=== PATIENT | female | born 1985 | race African-American/Black ===

== ENCOUNTER 2017-07-03 09:31 | Emergency (ER) | payer BC ==
[~2017-07-03] VITALS: Ht 160 cm; Wt 84.0 kg
[~2017-07-03 09:31] MED LIST: AMOXICILLIN500 MG PO; CIPROFLOXACN500 MG PO; LORTAB5 PO; NAPROSYN500 MG PO; [UNRECOGNIZED DRUG - CODE] OR
[2017-07-03 10:11] LABS: HEMATOCRIT 41.3 % (37.0-47.0); HEMOGLOBIN 13.4 g/dl (12.0-16.0); IMMATURE GRANULOCYTES 0.1 % (0.0-1.0); MEAN CELL VOLUME 88.4 fL CALC (80.0-100.0); MEAN CORPUSCULAR HGB 28.7 pG CALC (26.0-32.0); MEAN CORPUSCULAR HGB CONC 32.4 g/L CALC (32.0-36.0); NEUT# 3.27 thou/uL (2.00-7.15); RED BLOOD COUNT 4.67 mill/uL (4.20-5.60); RED CELL DISTRI WIDTH 13.2 % (11.5-15.5)
[2017-07-03 10:36] LABS: ANION GAP 20 (6-22 (CALC)); BUN 9 mg/dL (7-17); BUN/CREATININE RATIO 12 (12-20 (CALC)); CARBON DIOXIDE 22 mmol/l (22-30); CHLORIDE 106 mmol/l (95-108); CREATININE 0.8 mg/dL (0.5-1.0); GFR > 60 ML/MIN (>=60 (CALC)); GFR FOR AFR.AMER. > 60 ML/MIN (>=60 (CALC)); POTASSIUM 4.3 mmol/l (3.5-5.1); SODIUM 144 mmol/l (137-146)
[2017-07-03 11:28] LABS: URINE BILIRUBIN - DIPSTICK NEGATIVE (NEGATIVE); URINE BLOOD DIPSTICK NEGATIVE (NEGATIVE); URINE COLOR YELLOW; URINE GLUCOSE - DIPSTICK NEGATIVE (NEGATIVE); URINE KETONE TRACE mg/dL (NEGATIVE); URINE LEUK ESTERASE NEGATIVE (NEGATIVE); URINE NITRITE - DIPSTICK NEGATIVE (Negative); URINE PH 5.5 (4.5-8.0); URINE PROTEIN - DIPSTICK NEGATIVE (NEG-TRACE); URINE UROBILINOGEN - DIPSTICK 0.2 E.U./dL (0.2)
[2017-07-03 11:30] LABS: URINE CLARITY CLEAR
[2017-07-03 12:18] VITALS: BP 121/72
== END 2017-07-03 12:24 | disposition home or self-care (01) | DRG 103 ==
LOC: ED 09:31
PROVIDERS: Family Medicine
DX: R51 Headache (principal)

== ENCOUNTER 2017-10-14 08:17 | Emergency (ER) | payer BC ==
[~2017-10-14] VITALS: Ht 160 cm; Wt 85.2 kg
[2017-10-14 09:03] LABS: HEMATOCRIT 39.4 % (37.0-47.0); HEMOGLOBIN 12.9 g/dl (12.0-16.0); MEAN CELL VOLUME 87.4 fL CALC (80.0-100.0); MEAN CORPUSCULAR HGB 28.6 pG CALC (26.0-32.0); MEAN CORPUSCULAR HGB CONC 32.7 g/L CALC (32.0-36.0); NEUT# 1.81 thou/uL (2.00-7.15); RED BLOOD COUNT 4.51 mill/uL (4.20-5.60); RED CELL DISTRI WIDTH 12.9 % (11.5-15.5)
[2017-10-14 09:21] LABS: ALBUMIN 4.3 g/dL (3.2-5.0); ALKALINE PHOSPHATASE 94 u/l (38-126); AMYLASE 93 u/l (30-110); ANION GAP 19 (6-22 (CALC)); BILIRUBIN, TOTAL 0.4 mg/dL (0.0-1.4); BUN 8 mg/dL (7-17); BUN/CREATININE RATIO 12 (12-20 (CALC)); CARBON DIOXIDE 22 mmol/l (22-30); CHLORIDE 106 mmol/l (95-108); CREATININE 0.7 mg/dL (0.5-1.0); GFR > 60 ML/MIN (>=60 (CALC)); GFR FOR AFR.AMER. > 60 ML/MIN (>=60 (CALC)); LIPASE 72 u/l (23-300); POTASSIUM 3.6 mmol/l (3.5-5.1); SGOT/AST 26 u/l (14-36); SGPT/ALT 29 u/l (9-52); SODIUM 144 mmol/l (137-146); TOTAL PROTEIN 8.1 g/dL (6.3-8.2)
[2017-10-14 09:31] LABS: MYOGLOBIN 23 ng/mL (0 - 62)
[2017-10-14 09:52] LABS: TSH, 3RD GENERATION 1.97 uIU/mL (0.47 - 4.68)
[2017-10-14 11:24] LABS: URINE BILIRUBIN - DIPSTICK NEGATIVE (NEGATIVE); URINE BLOOD DIPSTICK NEGATIVE (NEGATIVE); URINE COLOR YELLOW; URINE GLUCOSE - DIPSTICK NEGATIVE (NEGATIVE); URINE KETONE NEGATIVE (NEGATIVE); URINE LEUK ESTERASE NEGATIVE (NEGATIVE); URINE NITRITE - DIPSTICK NEGATIVE (Negative); URINE PROTEIN - DIPSTICK NEGATIVE (NEG-TRACE); URINE SPECIFIC GRAVITY >=1.030; URINE UROBILINOGEN - DIPSTICK 0.2 E.U./dL (0.2)
[2017-10-14 11:27] LABS: URINE CLARITY CLEAR
[2017-10-14 11:29] LABS: BARBITURATES NEGATIVE (NEGATIVE); COCAINE NEGATIVE (NEGATIVE); METHADONE NEGATIVE (NEGATIVE); OXCYCODONE NEGATIVE (NEGATIVE); TETRAHYDROCANNABIONOL NEGATIVE (NEGATIVE); TRICYLIC ANTIDEPRESSANTS POSITIVE (NEGATIVE)
[2017-10-14] MEDS ORDERED: TORADOL PO (11:56)
[2017-10-14 12:12] VITALS: BP 116/71
== END 2017-10-14 12:11 | disposition home or self-care (01) | DRG 313 ==
LOC: ED 08:17
PROVIDERS: Emergency Medicine
DX: R07.89 Other chest pain (principal); R51 Headache

== ENCOUNTER 2018-03-06 21:12 | Emergency (ER) | payer BC ==
[~2018-03-06] VITALS: Ht 160 cm; Wt 81.8 kg
[~2018-03-06 21:12] MED LIST changes: +TORADOL PO
[2018-03-06 22:26] LABS: URINE BILIRUBIN - DIPSTICK NEGATIVE (NEGATIVE); URINE BLOOD DIPSTICK NEGATIVE (NEGATIVE); URINE COLOR YELLOW; URINE GLUCOSE - DIPSTICK NEGATIVE (NEGATIVE); URINE KETONE NEGATIVE (NEGATIVE); URINE LEUK ESTERASE NEGATIVE (NEGATIVE); URINE NITRITE - DIPSTICK NEGATIVE (Negative); URINE PROTEIN - DIPSTICK NEGATIVE (NEG-TRACE); URINE SPECIFIC GRAVITY >=1.030; URINE UROBILINOGEN - DIPSTICK 0.2 E.U./dL (0.2)
[2018-03-06 22:28] LABS: URINE CLARITY CLEAR
[2018-03-06 23:25] LABS: HEMATOCRIT 36.4 % (37.0-47.0); HEMOGLOBIN 12.1 g/dl (12.0-16.0); IMMATURE GRANULOCYTES 0.1 % (0.0-5.0); MEAN CELL VOLUME 87.9 fL CALC (80.0-100.0); MEAN CORPUSCULAR HGB 29.2 pG CALC (26.0-32.0); MEAN CORPUSCULAR HGB CONC 33.2 g/L CALC (32.0-36.0); NEUT# 3.16 thou/uL (2.00-7.15); RED BLOOD COUNT 4.14 mill/uL (4.20-5.60); RED CELL DISTRI WIDTH 13.2 % (11.5-15.5)
[2018-03-07 00:20] LABS: ALKALINE PHOSPHATASE 73 u/l (38-126); ANION GAP 13 (6-22 (CALC)); BILIRUBIN, TOTAL 0.1 mg/dL (0.0-1.4); BUN 18 mg/dL (7-17); BUN/CREATININE RATIO 25 (12-20 (CALC)); CARBON DIOXIDE 27 mmol/l (22-30); CHLORIDE 105 mmol/l (95-108); CREATININE 0.7 mg/dL (0.5-1.0); GFR > 60 ML/MIN (>=60 (CALC)); GFR FOR AFR.AMER. > 60 ML/MIN (>=60 (CALC)); POTASSIUM 3.8 mmol/l (3.5-5.1); SGOT/AST 22 u/l (14-36); SODIUM 142 mmol/l (137-146); TOTAL PROTEIN 7.3 g/dL (6.3-8.2)
[2018-03-07 00:31] LABS: MYOGLOBIN 15 ng/mL (0 - 62)
[2018-03-07] MEDS ORDERED: FLEXERIL PO (00:50)
[2018-03-07] MEDS ORDERED: NAPROSYN500 MG PO (00:50)
[2018-03-07 01:11] VITALS: BP 116/64
== END 2018-03-07 01:24 | disposition home or self-care (01) | DRG 313 ==
LOC: ED 21:12
PROVIDERS: Emergency Medicine
DX: R07.89 Other chest pain (principal); M62.838 Other muscle spasm

== ENCOUNTER 2018-07-13 23:56 | Emergency (ER) | payer BC ==
[~2018-07-13] VITALS: Ht 160 cm; Wt 82.0 kg
[~2018-07-13 23:56] MED LIST changes: +FLEXERIL PO
[2018-07-14 00:39] LABS: HEMATOCRIT 36.2 % (37.0-47.0); HEMOGLOBIN 11.9 g/dl (12.0-16.0); IMMATURE GRANULOCYTES 0.2 % (0.0-5.0); MEAN CELL VOLUME 89.2 fL CALC (80.0-100.0); MEAN CORPUSCULAR HGB 29.3 pG CALC (26.0-32.0); MEAN CORPUSCULAR HGB CONC 32.9 g/L CALC (32.0-36.0); RED BLOOD COUNT 4.06 mill/uL (4.20-5.60); RED CELL DISTRI WIDTH 12.6 % (11.5-15.5)
[2018-07-14 00:44] LABS: URINE BILIRUBIN - DIPSTICK NEGATIVE (NEGATIVE); URINE BLOOD DIPSTICK SMALL (NEGATIVE); URINE COLOR YELLOW; URINE GLUCOSE - DIPSTICK NEGATIVE (NEGATIVE); URINE KETONE NEGATIVE (NEGATIVE); URINE LEUK ESTERASE TRACE (NEGATIVE); URINE NITRITE - DIPSTICK NEGATIVE (Negative); URINE PH 7.5 (4.5-8.0); URINE PROTEIN - DIPSTICK 30 mg/dL (NEG-TRACE); URINE SPECIFIC GRAVITY 1.025; URINE UROBILINOGEN - DIPSTICK 0.2 E.U./dL (0.2)
[2018-07-14 00:59] LABS: URINE BACTERIA FEW hpf; URINE SPERM MODERATE hpf; URINE SQUAMOUS EPITHELIAL CELL FEW EPI/hpf (0-FEW)
[2018-07-14 01:05] LABS: PLATELET COUNT 372 thou/uL (130-400)
[2018-07-14 01:06] LABS: MANUAL DIFFERENTIAL YES
[2018-07-14 01:07] LABS: BAND 3 % (0-8); PLATELET ESTIMATE NORMAL
[2018-07-14 01:24] LABS: ALBUMIN 4.2 g/dL (3.2-5.0); ALKALINE PHOSPHATASE 85 u/l (38-126); ANION GAP 11 (6-22 (CALC)); BILIRUBIN, TOTAL 0.2 mg/dL (0.0-1.4); BUN 11 mg/dL (7-17); BUN/CREATININE RATIO 14 (12-20 (CALC)); CARBON DIOXIDE 26 mmol/l (22-30); CHLORIDE 106 mmol/l (95-108); CREATININE 0.8 mg/dL (0.5-1.0); GFR > 60 ML/MIN (>=60 (CALC)); GFR FOR AFR.AMER. > 60 ML/MIN (>=60 (CALC)); POTASSIUM 3.7 mmol/l (3.5-5.1); SGOT/AST 25 u/l (14-36); SODIUM 140 mmol/l (137-146); TOTAL PROTEIN 7.8 g/dL (6.3-8.2)
[2018-07-14 01:50] LABS: AMYLASE 79 u/l (30-110); LIPASE 150 u/l (23-300)
[2018-07-14] MEDS ORDERED: PROTONIX40 MG PO (03:38)
[2018-07-14 03:45] VITALS: BP 125/68
== END 2018-07-14 03:45 | disposition home or self-care (01) | DRG 392 ==
LOC: ED 23:56
PROVIDERS: Emergency Medicine
DX: R10.12 Left upper quadrant pain (principal); R10.11 Right upper quadrant pain; R10.13 Epigastric pain
CPT/HCPCS: Q9967; S0164

== ENCOUNTER 2021-09-25 07:56 | Emergency (ER) | payer BC ==
[~2021-09-25] VITALS: Ht 160 cm; Wt 84.0 kg
[~2021-09-25 07:56] MED LIST changes: +PROTONIX40 MG PO
[2021-09-25 08:01] VITALS: BP 133/74
[2021-09-25 09:10] LABS: URINE BILIRUBIN - DIPSTICK NEGATIVE (NEGATIVE); URINE BLOOD DIPSTICK TRACE-INTACT (NEGATIVE); URINE COLOR YELLOW; URINE GLUCOSE - DIPSTICK NEGATIVE (NEGATIVE); URINE KETONE NEGATIVE (NEGATIVE); URINE LEUK ESTERASE NEGATIVE (NEGATIVE); URINE PROTEIN - DIPSTICK NEGATIVE (NEG-TRACE); URINE SPECIFIC GRAVITY 1.025; URINE UROBILINOGEN - DIPSTICK 0.2 E.U./dL (0.2)
[2021-09-25 09:10] LABS: ALBUMIN 4.1 g/dL (3.2-5.0); ALKALINE PHOSPHATASE 76 u/l (38-126); AMYLASE 77 u/l (30-110); ANION GAP 12 (6-22 (CALC)); BILIRUBIN, TOTAL 0.2 mg/dL (0.0-1.4); BUN 9 mg/dL (7-17); BUN/CREATININE RATIO 13 (12-20 (CALC)); CARBON DIOXIDE 25 mmol/l (22-30); CHLORIDE 107 mmol/l (95-108); CREATININE 0.7 mg/dL (0.5-1.0); GFR > 60 ML/MIN (>=60 (CALC)); GFR FOR AFR.AMER. > 60 ML/MIN (>=60 (CALC)); LIPASE 78 u/l (23-300); POTASSIUM 4.1 mmol/l (3.5-5.1); SGOT/AST 22 u/l (14-36); SODIUM 139 mmol/l (137-146); TOTAL PROTEIN 7.3 g/dL (6.3-8.2)
[2021-09-25 09:13] LABS: HEMATOCRIT 37.7 % (37.0-47.0); IMMATURE GRANULOCYTES 0.1 % (0.0-5.0); MEAN CELL VOLUME 90.4 fL CALC (80.0-100.0); MEAN CORPUSCULAR HGB 28.8 pG CALC (26.0-32.0); MEAN CORPUSCULAR HGB CONC 31.8 g/dL CAL (32.0-36.0); NEUT# 2.43 thou/uL (2.00-7.15); RED BLOOD COUNT 4.17 mill/uL (4.20-5.60); RED CELL DISTRI WIDTH 13.4 % (11.5-15.5)
[2021-09-25 09:18] LABS: URINE NITRITE - DIPSTICK NEGATIVE (Negative)
[2021-09-25] MEDS ORDERED: PROTONIX40 M2 PO (12:31)
[2021-09-25 12:44] VITALS: BP 133/74
== END 2021-09-25 13:35 | disposition home or self-care (01) | DRG 313 ==
LOC: ED 07:56
DX: R07.89 Other chest pain (principal); I10 Essential (primary) hypertension; E11.9 Type 2 diabetes mellitus without complications; E78.00 Pure hypercholesterolemia, unspecified; Z20.822 Contact with and (suspected) exposure to COVID-19

== ENCOUNTER 2021-10-12 13:35 | Emergency (ER) | payer BC ==
[~2021-10-12] VITALS: Ht 160 cm; Wt 86.4 kg
[2021-10-12] VITALS (8 sets, daily range): BP systolic 111–129; BP diastolic 59–76
[~2021-10-12 13:35] MED LIST changes: +PROTONIX40 M2 PO
[2021-10-12] MEDS ORDERED: PERCOCET 10/31 COMBO PO (16:50)
[2021-10-12] MEDS ORDERED: NAPROXEN500 MG PO (16:50)
== END 2021-10-12 17:52 | disposition home or self-care (01) | DRG 563 ==
LOC: ED 13:35
DX: S39.012A Strain of muscle, fascia and tendon of lower back, initial encounter (principal); X50.0XXA Overexertion from strenuous movement or load, initial encounter

== ENCOUNTER 2022-04-07 20:00 | Observation (INO) | payer OTHER ==
[~2022-04-07] VITALS: Ht 160 cm; Wt 85.5 kg
[2022-04-07] VITALS (7 sets, daily range): BP systolic 111–134; BP diastolic 64–82
[~2022-04-07 20:00] MED LIST changes: +NAPROXEN500 MG PO; +PERCOCET 10/31 COMBO PO
[2022-04-07 20:35] LABS: HEMOGLOBIN 11.9 g/dl (12.0-16.0); IMMATURE GRANULOCYTES 0.1 % (0.0-5.0); MEAN CELL VOLUME 88.5 fL CALC (80.0-100.0); MEAN CORPUSCULAR HGB 29.2 pG CALC (26.0-32.0); MEAN CORPUSCULAR HGB CONC 33.1 g/dL CAL (32.0-36.0); NEUT# 5.1 thou/uL (2.00-7.15); RED BLOOD COUNT 4.07 mill/uL (4.20-5.60); RED CELL DISTRI WIDTH 12.9 % (11.5-15.5)
[2022-04-07 20:49] LABS: ALBUMIN 4.1 g/dL (3.2-5.0); ALKALINE PHOSPHATASE 74 u/l (38-126); ANION GAP 11 (6-22 (CALC)); BILIRUBIN, TOTAL 0.4 mg/dL (0.0-1.4); BUN 10 mg/dL (7-17); BUN/CREATININE RATIO 12 (12-20 (CALC)); CARBON DIOXIDE 25 mmol/l (22-30); CHLORIDE 104 mmol/l (95-108); CREATININE 0.9 mg/dL (0.5-1.0); GFR FOR AFR.AMER. > 60 ML/MIN (>=60 (CALC)); GFR OTHER RACES > 60 ML/MIN (>=60 (CALC)); POTASSIUM 3.7 mmol/l (3.5-5.1); SGOT/AST 27 u/l (14-36); SODIUM 136 mmol/l (137-146); TOTAL PROTEIN 7.6 g/dL (6.3-8.2)
[2022-04-07 20:54] LABS: PROTHROMBIN TIME 10.4 SECONDS (9.0-12.5)
--- NOTE | 2022-04-07 20:59 | NUR ---
PT TO ED FOR LEFT ARM TINGLING/HEAVINESS AND LEFT FACIAL TINGLING SINCE 12PM. PT HAS HX OF MUSCLE SPASMS AND TINGLING, PT SELF MEDICATED HOWEVER WOKE UP TONIGHT AND SYMPTOMS PERSISTED. STROKE ALERT CALLED AT 2013, PT TAKEN TO CT. BG 91, LDA ESTABLISHED. PT ASSESSED BY TELE NUEUROLOGIST, NIH=1. PT IN NAD, A&OX4, VSS.
--- NOTE | 2022-04-07 21:23 | NUR ---
Reassessment of patient completed. No distress noted. NO CHANGES NOTED IN NIH SCORE
[2022-04-07] MEDS ORDERED: TRI-LO-SPRINTEC1 TAB (21:39)
[2022-04-07] MEDS ORDERED: FLEXERIL5 M1 PO (21:40)
--- NOTE | 2022-04-07 23:00 | NUR ---
PATIENT ADMITTED FROM ER VIA WHEELCHAIR WITH ER STAFF IN ATTENDANCE. PATIENT IS BEING ADMITTED FOR LEFT FACIAL AND LEFT ARM NUMBNESS. STROKE ALERT WAS CALLED IN ER AND R/O BY TELE NEURO. PATIENT IS AMBULATORY TO BR TO VOID AND URINE SPEC WAS OBTAINED AND SENT TO LAB. PATIENT IS STEADY ON HER FEET. ALERT AND ORIENTEDX3. NEURO EXAM IS WNL EXCEPT FOR FACIEAL NUMBNESS. SALINE LOCK TO RAC INTACT AND IVF NS HUNG AND INFUSING AT 50CC/HR. SITE IS HEALTHY WITH GOOD BLOOD RETURN. LUNGS ARE CLEAR. ABD IS SOFT WITH ACTIVE BS. LAST BM WAS YESTERDAY. NO PERIPHERAL EDEMA NOTED AND PULSES ARE PALPABLE. ORIENTED TO ROOM AND SURROUNDINGS. INSTRUCTED ON USE OF NURSE CALL LIGHT SYSTEM. OFFER FOOD AND DRINK BUT PATIENT DECLINED AT THIS TIME AND WATER AT BEDSIDE. SAFETY PRECAUTIONS REINFORCED. CALL LIGHT IN REACH. WILL CONT TO MONITOR.
[2022-04-08 01:32] LABS: URINE BILIRUBIN - DIPSTICK NEGATIVE (NEGATIVE); URINE BLOOD DIPSTICK NEGATIVE (NEGATIVE); URINE COLOR YELLOW; URINE GLUCOSE - DIPSTICK NEGATIVE (NEGATIVE); URINE KETONE 15 mg/dL (NEGATIVE); URINE LEUK ESTERASE NEGATIVE (NEGATIVE); URINE NITRITE - DIPSTICK NEGATIVE (Negative); URINE PH 6.5 (4.5-8.0); URINE PROTEIN - DIPSTICK NEGATIVE (NEG-TRACE); URINE UROBILINOGEN - DIPSTICK 0.2 E.U./dL (0.2)
--- NOTE | 2022-04-08 04:00 | NUR ---
PATIENT RESTING IN BED-APPEARTS SLEEPING WITH EYES CLOSED. RESPS ARE EVEN AND UNLABORED. IVF PATENT AND INFUSING AT 50CC/HR. CALL LIGHT IN REACH. WILL CONT TO MONITOR.
[2022-04-08 04:12] VITALS: BP 107/62
[2022-04-08 05:50] LABS: HEMATOCRIT 33.4 % (37.0-47.0); HEMOGLOBIN 11.3 g/dl (12.0-16.0); IMMATURE GRANULOCYTES 0.1 % (0.0-5.0); MEAN CELL VOLUME 88.8 fL CALC (80.0-100.0); MEAN CORPUSCULAR HGB 30.1 pG CALC (26.0-32.0); MEAN CORPUSCULAR HGB CONC 33.8 g/dL CAL (32.0-36.0); NEUT# 3.02 thou/uL (2.00-7.15); RED BLOOD COUNT 3.76 mill/uL (4.20-5.60); RED CELL DISTRI WIDTH 13.1 % (11.5-15.5)
[2022-04-08 06:15] LABS: ALBUMIN 3.7 g/dL (3.2-5.0); ALKALINE PHOSPHATASE 70 u/l (38-126); ANION GAP 11 (6-22 (CALC)); BUN 11 mg/dL (7-17); BUN/CREATININE RATIO 14 (12-20 (CALC)); CARBON DIOXIDE 24 mmol/l (22-30); CHLORIDE 107 mmol/l (95-108); CREATININE 0.8 mg/dL (0.5-1.0); GFR FOR AFR.AMER. > 60 ML/MIN (>=60 (CALC)); GFR OTHER RACES > 60 ML/MIN (>=60 (CALC)); MAGNESIUM 1.9 mg/dL (1.6-2.3); POTASSIUM 4.2 mmol/l (3.5-5.1); SGOT/AST 25 u/l (14-36); SODIUM 137 mmol/l (137-146); TOTAL PROTEIN 6.9 g/dL (6.3-8.2)
[2022-04-08 06:17] LABS: BILIRUBIN, TOTAL 0.1 mg/dL (0.0-1.4)
[2022-04-08 07:00] VITALS: BP 112/64
--- NOTE | 2022-04-08 07:45 | NUR ---
PT RESTING IN BED. ASSESSMENT PERFORMED. NIH SCALE PERFORMED SCORE OF 0. UPDATED PT ON CURRENT PLAN OF CARE. PT STATES NO QUESTIONS/CONCERNS. IV PATENT. FALL/SAFTEY PRECAUTION IN PLACE. CALL LIGHT WITHIN REACH
[2022-04-08] MEDS ORDERED: ASPIRIN ADULT L81 M2 PO (12:54)
--- NOTE | 2022-04-08 14:27 | NUR ---
Discharge instructions given. Patient verbalizes understanding of same. Discharged in stable condition via Wheelchair to Home with staff. All belongings sent with pt.
== END 2022-04-08 14:26 | disposition home or self-care (01) | DRG 93 ==
LOC: ED 20:00 → ED-I 21:10 → ED 21:10 → MS2 21:25
PROVIDERS: Family Medicine; ADMIT Internal Medicine; ATTEND Internal Medicine
DX: R20.0 Anesthesia of skin (principal); R20.2 Paresthesia of skin; M62.838 Other muscle spasm; F41.9 Anxiety disorder, unspecified; Z79.3 Long term (current) use of hormonal contraceptives
CPT/HCPCS: G0378

== ENCOUNTER 2022-05-30 16:46 | Emergency (ER) | payer OTHER ==
[2022-05-30] VITALS (18 sets, daily range): BP systolic 99–143; BP diastolic 53–83
[~2022-05-30] VITALS: Ht 160 cm; Wt 87.3 kg
[~2022-05-30 16:46] MED LIST changes: +ASPIRIN ADULT L81 M2 PO; +FLEXERIL5 M1 PO; +TRI-LO-SPRINTEC1 TAB
[2022-05-30] MEDS ORDERED: PROTONIX20 M1 PO (17:25)
[2022-05-30 17:27] LABS: BASO% 0.5 % (0-3); EOS% 5.5 % (0-8); HEMATOCRIT 35.5 % (37.0-47.0); HEMOGLOBIN 11.8 g/dl (12.0-16.0); IMMATURE GRANULOCYTES 0.1 % (0.0-5.0); LYMPH% 49.1 % (15-41); MEAN CELL VOLUME 89.6 fL CALC (80.0-100.0); MEAN CORPUSCULAR HGB 29.8 pG CALC (26.0-32.0); MEAN CORPUSCULAR HGB CONC 33.2 g/dL CAL (32.0-36.0); MONO% 7.9 % (2-13); NEUT# 3.94 thou/uL (2.00-7.15); NEUT% 36.9 % (42-76); RED BLOOD COUNT 3.96 mill/uL (4.20-5.60); RED CELL DISTRI WIDTH 13.8 % (11.5-15.5)
[2022-05-30 17:41] LABS: ALKALINE PHOSPHATASE 96 u/l (38-126); ANION GAP 13 (6-22 (CALC)); BILIRUBIN, TOTAL 0.1 mg/dL (0.0-1.4); BUN 10 mg/dL (7-17); BUN/CREATININE RATIO 14 (12-20 (CALC)); CARBON DIOXIDE 23 mmol/l (22-30); CHLORIDE 106 mmol/l (95-108); CREATININE 0.7 mg/dL (0.5-1.0); GFR FOR AFR.AMER. > 60 ML/MIN (>=60 (CALC)); GFR OTHER RACES > 60 ML/MIN (>=60 (CALC)); POTASSIUM 3.5 mmol/l (3.5-5.1); SGOT/AST 30 u/l (14-36); SODIUM 139 mmol/l (137-146)
[2022-05-30 17:42] LABS: ALBUMIN 4.6 g/dL (3.2-5.0); TOTAL PROTEIN 8.4 g/dL (6.3-8.2)
[2022-05-30] MEDS ORDERED: NAPROXEN500 MG PO (21:50)
== END 2022-05-30 22:19 | disposition home or self-care (01) | DRG 313 ==
LOC: ED 16:46
PROVIDERS: Family Medicine
DX: R07.89 Other chest pain (principal)